=== PATIENT | male | born 1975 | race Caucasian/White ===

== ENCOUNTER 2023-05-13 13:43 | Emergency (ER) | payer OTHER ==
[~2023-05-13] VITALS: Ht 177.8 cm; Wt 95.2 kg
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
[~2023-05-13 13:43] MED LIST: CRUTCHES XX; HYDROCODON-ACE1 EA11 PO
[2023-05-13] MEDS ORDERED: HYDROCODON-ACE1 EA11 PO (17:09)
[2023-05-13 17:30] VITALS: BP 123/83
== END 2023-05-13 17:30 | disposition home or self-care (01) ==
LOC: ED 13:43
DX: S89.91XA Unspecified injury of right lower leg, initial encounter (principal); W01.0XXA Fall on same level from slipping, tripping and stumbling without subsequent striking against object, initial encounter; F17.200 Nicotine dependence, unspecified, uncomplicated
CPT/HCPCS: 73560; 99283-25

== ENCOUNTER 2024-05-28 18:19 | Emergency (ER) | payer OTHER ==
[~2024-05-28] VITALS: Ht 177.8 cm; Wt 104.3 kg
[~2024-05-28 18:19] MED LIST changes: +CEPHALEXIN500 MG PO; +DOXYCYCLINE HY100 MG PO
[2024-05-28] MEDS ORDERED: ALLOPURINOL100 MG PO (19:23)
[2024-05-28] MEDS ORDERED: MORPHINE SULFATE 4 MG/ML VIAL IV ONE (19:45)
[2024-05-28] MEDS ORDERED: TRAMADOL HCL50 MG PO (22:45)
[2024-05-28] MEDS ORDERED: TRAMADOL HCL 50 MG HOME.PACK PO ONE (22:45)
[2024-05-28 23:24] VITALS: BP 131/98
== END 2024-05-28 23:25 | disposition home or self-care (01) ==
LOC: ED 18:19
DX: S62.112A Displaced fracture of triquetrum [cuneiform] bone, left wrist, initial encounter for closed fracture (principal); S01.01XA Laceration without foreign body of scalp, initial encounter; W01.0XXA Fall on same level from slipping, tripping and stumbling without subsequent striking against object, initial encounter; F17.200 Nicotine dependence, unspecified, uncomplicated; Z79.899 Other long term (current) drug therapy
CPT/HCPCS: 29125; 70450; 72125; 73110; 73200; 99284-25; A9270; J2270

== ENCOUNTER 2025-01-22 15:31 | Emergency (ER) | payer OTHER ==
[~2025-01-22] VITALS: Ht 177.8 cm; Wt 106.0 kg
[~2025-01-22 15:31] MED LIST changes: +ALLOPURINOL100 MG PO; +TRAMADOL HCL50 MG PO
[2025-01-22] MEDS ORDERED: KETOROLAC TROMETHAMINE 60 MG/2 ML VIAL IM ONE (16:30)
[2025-01-22] MEDS ORDERED: diazePAM 10 MG/2 ML SYR IM ONE (16:30)
[2025-01-22] MEDS ORDERED: CELEBREX200 MG PO (17:27)
[2025-01-22] MEDS ORDERED: TRAMADOL HCL50 MG PO (17:27)
[2025-01-22 18:11] VITALS: BP 125/69
== END 2025-01-22 18:12 | disposition home or self-care (01) ==
LOC: ED 15:31
DX: S83.91XA Sprain of unspecified site of right knee, initial encounter (principal); F17.200 Nicotine dependence, unspecified, uncomplicated; X58.XXXA Exposure to other specified factors, initial encounter
CPT/HCPCS: 73560; 96372; 99283; J1885; J3360